=== PATIENT | male | born 1975 | race Caucasian/White ===

== ENCOUNTER 2017-07-04 01:10 | Inpatient (IN) | payer SELFPAY ==
[~2017-07-04] VITALS: Ht 167.6 cm; Wt 77.1 kg
[2017-07-04] MEDS ORDERED: ONDANSETRON HCL 4MG/2ML INJ IV STA (02:40)
[2017-07-04] MEDS ORDERED: ASPIRIN 325MG TABLET PO ONE (02:45)
[2017-07-04] MEDS ORDERED: MORPHINE SULFATE 4 MG/ML CPJ (NOT FOR IM USE) IV ONE ×2 (02:45→05:30)
[2017-07-04 02:59] LABS: BASOPHILS % 0.8 % (0.0-2.0); EOSINOPHILS % 4.3 % (0.0-5.0); HEMATOCRIT. 49.4 % (42.0-52.0); LYMPHOCYTES % 21.6 % (20.0-50.0); MEAN CORPUSCULAR HEMOGLOBIN 29.9 pg (28.0-32.0); MEAN CORPUSCULAR VOLUME 86.7 fL (80.0-94.0); MEAN PLATELET VOLUME 8.4 fl (7.4-10.4); MONOCYTES % 6.8 % (2.0-8.0); NEUTROPHILS % 66.5 % (40.0-76.0); PLATELET 290 x1000/uL (130-400); RED CELL DISTRIBUTION WIDTH 13.2 % (11.6-14.6)
[2017-07-04 03:35] LABS: CHLORIDE 103 mEq/L (98-107)
[2017-07-04] MEDS ORDERED: SODIUM CHLORIDE 0.9% 1,000 ML IV SCH (04:07)
[2017-07-04] MEDS ORDERED: DIPHENHYDRAMINE 50MG/ML VIAL IV PRN (07:15)
[2017-07-04] MEDS ORDERED: IPRATROPIUM/ALBUTEROL 0.5-3(2.5)MG/3ML NEB INH PRN (07:15)
[2017-07-04] MEDS ORDERED: CLONIDINE 0.1MG TABLET PO PRN (07:15)
[2017-07-04] MEDS ORDERED: ACETAMINOPHEN 325MG TABLET PO PRN (07:15)
[2017-07-04] MEDS ORDERED: LORAZEPAM 2MG/ML CPJ IV PRN (07:15)
[2017-07-04] MEDS ORDERED: DOCUSATE SODIUM 100MG CAPSULE PO PRN (07:15)
[2017-07-04] MEDS ORDERED: HYDROCODONE/ACETAMINOPHEN 5/325MG TABLET PO PRN (07:15)
[2017-07-04] MEDS ORDERED: MAGNESIUM/ALUMINUM HYDROXIDE/SIMETHICONE 30ML UDC PO PRN (07:15)
[2017-07-04] MEDS ORDERED: NA PHOS,M-B/NA PHOS,DI-BA ENEMA 118ML PR PRN (07:15)
[2017-07-04] MEDS ORDERED: ONDANSETRON HCL 4MG/2ML INJ IV PRN (07:15)
[2017-07-04] MEDS ORDERED: GUAIFENESIN 200MG/10ML SUGAR FREE UDC PO PRN (07:15)
[2017-07-04 07:47] LABS: CHLORIDE 104 mEq/L (98-107)
[2017-07-04 08:11] VITALS: BP 150/91
[2017-07-04] MEDS ORDERED: ASPIRIN 81MG EC TABLET PO SCH (09:00)
[2017-07-04] MEDS: ENOXAPARIN 40MG/0.4ML SYR SUBCUT SCH (09:12)
[2017-07-04 09:24] VITALS: BP 150/91
[2017-07-04] MEDS ORDERED: REGADENOSON 0.4 MG/5 ML IV ONE ×3 (09:45→14:26)
[2017-07-04 10:00] VITALS: BP_SYST 124; BP_SYST 150; BP_DIAS 84; BP_DIAS 91
[2017-07-04] MEDS ORDERED: POTASSIUM CHLORIDE 20MEQ TABLET SR PO NR (10:15)
[2017-07-04] MEDS ORDERED: PNEUMOCOCCAL 23-VAL P-SAC VAC 0.5 ML IM ONE (10:30)
[2017-07-04] MEDS ORDERED: INFLUENZA VIRUS VACCINE(AFLURIA) 0.5ML SYR IM ONE (10:30)
[2017-07-04] MEDS: MORPHINE SULFATE 4 MG/ML CPJ (NOT FOR IM USE) IV PRN ×2 (10:44→18:12)
[2017-07-04 11:21] LABS: T4 FREE 1.06 ng/dL (0.76-1.46)
[2017-07-04 11:22] VITALS: BP 119/72
[2017-07-04 13:06] LABS: CREATINE KINASE 215 IU/L (39-308)
[2017-07-04 13:07] LABS: CREATINE KINASE MB FRACTION 3.6 ng/mL (0.5-3.6)
[2017-07-04] MEDS ORDERED: SODIUM CHLORIDE 0.9% 10ML VIAL ONE (15:23)
[2017-07-04 15:30] VITALS: BP 132/85
[2017-07-04 20:00] VITALS: BP 121/78
[2017-07-04 23:38] LABS: CREATINE KINASE 148 IU/L (39-308); CREATINE KINASE MB FRACTION 2.4 ng/mL (0.5-3.6)
[2017-07-05 00:22] VITALS: BP 125/81
[2017-07-05] MEDS: MORPHINE SULFATE 4 MG/ML CPJ (NOT FOR IM USE) IV PRN ×3 (01:14→09:37)
[2017-07-05 04:00] VITALS: BP 114/83
[2017-07-05 07:06] LABS: BASOPHILS % 0.7 % (0.0-2.0); EOSINOPHILS % 5.9 % (0.0-5.0); HEMOGLOBIN. 16.7 g/dL (14.0-18.0); LYMPHOCYTES % 22.7 % (20.0-50.0); MEAN CORPUSCULAR HEMOGLOBIN 29.3 pg (28.0-32.0); MEAN CORPUSCULAR VOLUME 87.9 fL (80.0-94.0); MEAN PLATELET VOLUME 8.1 fl (7.4-10.4); NEUTROPHILS % 62.7 % (40.0-76.0); PLATELET 291 x1000/uL (130-400); RED BLOOD CELL COUNT 5.69 mill/uL (4.7-6.1); RED CELL DISTRIBUTION WIDTH 13.3 % (11.6-14.6)
[2017-07-05 07:26] LABS: CHLORIDE 103 mEq/L (98-107)
[2017-07-05 07:37] LABS: CREATINE KINASE 112 IU/L (39-308); CREATINE KINASE MB FRACTION 1.8 ng/mL (0.5-3.6); HDL CHOLESTEROL 30 mg/dL (40-59); LDL CHOLESTEROL 131 mg/dL (5-100)
[2017-07-05] MEDS ORDERED: REGADENOSON 0.4 MG/5 ML IV ONE (07:56)
[2017-07-05] MEDS ORDERED: ASPIRIN 81MG TABLET PO SCH (09:00)
[2017-07-05] MEDS: ENOXAPARIN 40MG/0.4ML SYR SUBCUT SCH (09:09)
[2017-07-05 09:28] LABS: *AMPHETAMINES SCREEN URINE NEGATIVE (NEGATIVE); *BARBITURATES SCREEN URINE NEGATIVE (NEGATIVE); *BENZODIAZEPINES SCREEN URINE NEGATIVE (NEGATIVE); *COCAINE SCREEN URINE NEGATIVE (NEGATIVE); CANNABINOID URINE SCREEN NEGATIVE (NEGATIVE); METHADONE URINE SCREEN NEGATIVE (NEGATIVE); OPIATES URINE SCREEN NEGATIVE (NEGATIVE); PHENCYCLIDINE URINE SCREEN NEGATIVE (NEGATIVE)
[2017-07-05 13:24] VITALS: BP 130/80
== END 2017-07-05 14:30 | disposition home or self-care (01) | DRG 203 ==
LOC: ER 01:35 → 6WST 04:08 → EDBEDREQ 04:14 → ENRESERV 07:01
PROVIDERS: ADMIT Internal Medicine; ATTEND Internal Medicine
DX: M94.0 Chondrocostal junction syndrome [Tietze] (principal); I24.9 Acute ischemic heart disease, unspecified; F17.200 Nicotine dependence, unspecified, uncomplicated; K21.9 Gastro-esophageal reflux disease without esophagitis; Z90.49 Acquired absence of other specified parts of digestive tract
CPT/HCPCS: 36415; 71045; 78452; 80048; 80061; 80305; 82550; 82553; 83036; 83880; 84439; 84443; 84484; 85379; 90686; 90732; 93005; 93017; 93306; 96374; 96375; 96376; 99285; A9500; J1650; J2270; J2405; J2785; J7030